=== PATIENT | male | born 1935 | race Caucasian/White ===

== ENCOUNTER 2016-10-29 07:45 | Observation (INO) | payer BC, MEDICARE ==
[~2016-10-29] VITALS: Ht 177.8 cm; Wt 101.9 kg
--- NOTE | 2016-10-30 08:02 | HP ---
ADMIT: 10/29/2016 RM/LOC: [facility] MR#: [id number] [address] [id number] ASHLEIGH CLAROS [address] [place] [id number] History and Physical SEX: M AGE: 80 : 1935 DATE OF SERVICE: 10/29/2016 CHIEF COMPLAINT: Left elbow pain. HISTORY: An 80-year-old male. On the , he had fallen in the [facility] landing on his left elbow. He had gone and gotten x-rays, and found to have a distal humerus fracture. He was placed into a splint and then followed up with his primary care doctor, Dr. Arambula. He had a preoperative clearance. He had his Eliquis held, and then was set up for surgery for today. No other issues since then. REVIEW OF SYMPTOMS: Otherwise, negative. CURRENT MEDICATIONS: Per the list. PAST MEDICAL HISTORY: 1. Ventricular bigeminy. 2. CHF. 3. Chronic kidney disease. 4. Bradycardia. 5. Hyperglycemia. 6. Muscle fatigue and stroke in April. PAST SURGICAL HISTORY: 1. Cholecystectomy. 2. Left knee arthroscopy. 3. Umbilical hernia repair. 4. Prostate biopsy. 5. Cystoscopy. 6. Cataracts. 7. Pacemaker and an echo. SOCIAL HISTORY: Noncontributory. FAMILY HISTORY: Noncontributory. PHYSICAL EXAMINATION: GENERAL: He is awake, alert, oriented, in no acute distress. LUNGS: He has no labored breathing. HEART: He has a regular rate and rhythm. ADMIT: 10/29/2016 RM/LOC: [facility] MR#: [id number] [address] [address] ASHLEIGH CLAROS [place] [address] [place] [address] [place] [address] History and Physical SEX: M AGE: 80 : 1935 EXTREMITIES: Left elbow is in a splint, which has fitting comfortably with still quite a bit of bruising and ecchymosis from above the splint. Sensation intact to light touch in all fingers. He has motor intact to ulnar nerves AIN, PIN distributions. Brisk capillary refill. X-RAYS: He has an intra-articular distal humerus fracture. PLAN: He is here today for surgical open reduction and internal fixation. He has signed a consent. We discussed risks and benefits, and expected outcome of the surgery including elbow stiffness, aches and pains, as well as risk of nonunion and malunion, nerve injury, neurovascular injury, etc., and the possibility of mortality from the anesthesia. John Martin MD/ baylee JOB #: [id number] CC: John Martin, Attending Physician Alton Arambula, Family Physician
[2016-10-30] MEDS ORDERED: ALFUZOSIN HCL E10 MG PO (20:13)
[2016-10-30] MEDS ORDERED: AVODART0.5 MG PO (20:13)
[2016-10-30] MEDS ORDERED: BETAPACE DPS80 MG PO (20:14)
[2016-10-30] MEDS ORDERED: ELIQUIS5 MG PO (20:14)
[2016-10-30] MEDS ORDERED: SINGULAIR10 MG PO (20:14)
[2016-10-30] MEDS ORDERED: [UNRECOGNIZED DRUG - OTHER] PO (20:14)
[2016-10-30] MEDS ORDERED: [UNRECOGNIZED DRUG - OTHER] PO (20:15)
[2016-10-30] MEDS ORDERED: FOLIC ACID0.8 M1 PO (20:15)
[2016-10-30] MEDS ORDERED: TYLENOL DPS325 MG PO (20:16)
[2016-10-30] MEDS ORDERED: VITAMIN B6100 MG PO (20:17)
[2016-10-30] MEDS ORDERED: DIPROSONE TP (20:17)
[2016-10-30] MEDS ORDERED: [UNRECOGNIZED DRUG - OTHER] PO (20:17)
[2016-10-30] MEDS ORDERED: VITAMIN D35000 UNI1 PO (20:18)
[2016-10-30] MEDS ORDERED: MIRALAX PACKET17 GM PO (20:18)
[2016-10-30] MEDS ORDERED: [UNRECOGNIZED DRUG - OTHER] PO (20:18)
[2016-10-30] MEDS ORDERED: COENZYME Q10100 MG PO (20:19)
[2016-10-30] MEDS ORDERED: LIPITOR DPS20 MG PO (20:19)
[2016-10-30] MEDS ORDERED: MEGA TAURINE1000 MG PO (20:19)
[2016-10-30] MEDS ORDERED: ASA CHILDREN'S81 MG PO (20:20)
[2016-10-30] MEDS ORDERED: KEFLEX-DPS500 MG PO (20:20)
[2016-10-30] MEDS ORDERED: TYLENOL #3 DPS1 TAB PO (20:20)
[2016-10-30] MEDS ORDERED: NORCO 5-325 TA1 EACH PO (20:20)
--- NOTE | 2016-10-31 08:33 | OR ---
ADMIT: 10/29/2016 RM/LOC: [address] [facility] MR#: [id number] [facility] [address] [place] [id number] ASHLEIGH CLAROS [address] [place] [address] Operative/Delivery Room Report SEX: M AGE: 80 : 1935 SURGERY DATE: 10/29/2016 SURGEON: John Martin MD PREOPERATIVE DIAGNOSIS: Left intra-articular distal humerus fracture. POSTOPERATIVE DIAGNOSIS: Left intra-articular distal humerus fracture. PROCEDURE PERFORMED: ORIF (open reduction and internal fixation) left distal humerus intra-articular fracture. BLOOD LOSS: 150. IMPLANTS: Acumed lateral column plate with several screws, I put in a 27 screw and then a 24 mini frag plate with about five 24 screws and then a K- wire and AO wire for the olecranon osteotomy fixation. 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 He was at work on Tuesday and actually tripped and fell, landed on his left elbow suffering a distal humerus fracture. I was called by his primary care doctor saying that he has been off Xarelto and has adequate swelling and so I offered to have him brought up today for surgical fixation. In the preoperative area he had an intact neurovascular exam and evidence of ecchymoses but no excessive swelling and so we did obtain written consent, discussed surgery and now he is here for that today. DESCRIPTION OF PROCEDURE: The patient was identified in the preoperative holding area. Written informed consent was confirmed, site was marked. Brought to the OR. After regional anesthesia was induced here and then we prepped and draped the left arm in the usual sterile fashion. A time-out was performed. Preop antibiotics were confirmed. I examined it and brought the tourniquet up to 250. Marked out my incision and made a midline incision curvilinearly just lateral to the tip of the olecranon, lifted medial and lateral skin flaps, identified the ulnar nerve. This was dissected free out of the cubital tunnel. Esmarch rubber was then wrapped around it to help kind of immobilize that anteriorly. Once that was out of the way, I exposed the olecranon about 2 cm from the tip, came around the joint and then used an oscillating saw making a chevron cut about two [address] through and completed that with an osteotome and then reflected that back sharply and blunt dissection down to bring the triceps back off the distal humerus exposing the fracture. What I found was a comminuted trochlear fracture with a lot of comminution in the olecranon fossa, fracture of the capitellum. The lateral column was intact but the capitellum was sort of impacted and flexed. The medial column was also fractured and displaced. I irrigated and cleaned out the fracture fragments, cleaned out the joint, got rid of the hematoma, identified all my fracture fragments and then using 62 K-wires began just meticulously reapproximating first the articular block. Got that well reduced and fixed with K-wires into the capitellum and into the trochlea fixing all ADMIT: 10/29/2016 RM/LOC: [address] [facility] MR#: [id number] [address] [place] [id number] [place] [address] Operative/Delivery Room Report SEX: M AGE: 80 : 1935 that together and then K-wires to fix that articular block to the shaft. This was confirmed under x-ray. I was happy with the reduction and everything. Then I planned my fixation. I placed a medial column plate by Acmaia on, fired screws distally, two screws holding the articular block together. Then in addition to that, I put from the trochlea into the capitellum an additional 27 screw outside of this plate just to hold that articular block well reduced and solid. Once that was done, I was a little bit uncomfortable with the articular fixation, how well that was all holding together, so I took a Mini frag 24 plate and contoured that, put it posterolaterally as we did not have a posterolateral plate available to us here in the OR and so I used that, contoured that and then put two locking 24 screws into the capitellum and three into the shaft there. That held that really nicely reduced and I was very happy with the fixation there. I put [id number] screw outside of the plate from the medial epicondyle into the trochlea and kind of holding that portion of the articular surface together. Then drilled and placed three cortical screws into the shaft holding that all nicely reduced. Those all got excellent fixation. Got my x-rays there and I was very happy with the length alignment and rotation of the entire construct. The articular surface was well aligned and I felt confident in the amount of fixation that I was able to obtain with the concert that I had. I then went ahead and the loose fragments were not well fixed within the olecranon fossa. They were impacted well enough where I did not have any bone loss, no need for bone graft but I left those just lightly impacted in place and then with reducing the olecranon in place felt that that would be sufficient to kind of hold that molded and keep those fragments in place while it healed. I then reapproximated the olecranon osteotomy site, placed two 62 K-wires across that holding it very nicely, we anatomically reduced and then drilled with 62 K-wire distally a hole for an AO wire, placed the 18-gauge AO wire around in a [id number] fashion, performed a tension band technique to hold that. The wire was then bent and impacted in holding that in excellent alignment with very good fixation. I was very happy about that. No gapping with range of motion of that at all. I had obviously before closing the osteotomy irrigated copiously again with normal saline and irrigated again with normal saline after fixing that with a tension band. Once this was done, using 2-0 Vicryl closed up kind of my interval between the triceps and the anconeus laterally and then the periosteum back over the olecranon and a subcutaneous stitch holding the ulnar nerve in an anteriorly transposed position. There was no point of entrapment ADMIT: 10/29/2016 RM/LOC: [address] [facility] MR#: [id number] [facility] [address] [place] [id number] [place] [address] Operative/Delivery Room Report SEX: M AGE: 80 : 1935 or pinching with motion of that when I had that there and I put 2-0 Vicryl holding that in the subcutaneous position. Used 2-0 Vicryl then to close subcutaneous layer and then karthik for the skin. We used 0.5% Marcaine with epinephrine locally and then he was placed into a sterile dressing with a splint placed anteriorly to keep him in about 30 degrees of extension and then anesthesia was withdrawn. Brought to the postoperative care unit in good condition. No complications. Postoperatively, he will be discharged home today. There were no complications of anesthesia. I will see him back in one week. At that point, I will do a wound check and I will switch him into a hinged elbow brace to start to allow some passive motion of the elbow, no active motion and then plan to get the karthik out in two weeks. He will be given Hallie for pain management as well. John Martin MD/ rachel JOB #: [id number] CC: John Martin, Attending Physician Alton Arambula, Family Physician
== END 2016-10-30 11:30 | disposition home or self-care (01) ==
LOC: SSS 07:45 → 5MS 12:00 → SSS 15:28 → 5MS 20:44
PROVIDERS: ADMIT Student in an Organized Health Care Education/Training Program
PROC: 0PSG04Z Reposition Left Humeral Shaft with Internal Fixation Device, Open Approach (ICD-10-PCS; principal; 2016-10-29)
DX: S42.402A Unspecified fracture of lower end of left humerus, initial encounter for closed fracture (principal); I50.9 Heart failure, unspecified; N18.9 Chronic kidney disease, unspecified; Z86.73 Personal history of transient ischemic attack (TIA), and cerebral infarction without residual deficits; Z90.49 Acquired absence of other specified parts of digestive tract; Z98.49 Cataract extraction status, unspecified eye; Z95.0 Presence of cardiac pacemaker; Z98.890 Other specified postprocedural states; W01.0XXA Fall on same level from slipping, tripping and stumbling without subsequent striking against object, initial encounter